=== PATIENT | female | born 1960 | race Caucasian/White ===

== ENCOUNTER 2018-10-25 10:13 | Day surgery (SDC) | payer OTHER ==
[~2018-10-25] VITALS: Ht 157.5 cm; Wt 68.0 kg
== END 2018-10-25 11:58 | disposition home or self-care (01) ==
LOC: CACL 10:13
PROVIDERS: ATTEND Internal Medicine Cardiovascular Disease
DX: R55 Syncope and collapse (principal); J45.909 Unspecified asthma, uncomplicated; Z88.1 Allergy status to other antibiotic agents; Z88.8 Allergy status to other drugs, medicaments and biological substances; Z98.890 Other specified postprocedural states; Z72.89 Other problems related to lifestyle; Z86.711 Personal history of pulmonary embolism
CPT/HCPCS: 93660